=== PATIENT | female | born 1970 | race Caucasian/White ===

== ENCOUNTER 2022-06-23 08:22 | Outpatient (CLI) | payer BC, SELFPAY ==
--- NOTE | 2022-06-23 08:31 | MM_ITS ---
WS: [id number] SCREENING DIGITAL TOMOSYNTHESIS MAMMOGRAM WITH CAD HISTORY: SCREENING COMPARISON: 08/03/2019 and 06/01/2018 Bilateral CC and MLO with tomosynthesis views submitted. Synthetic mammography reviewed. Computer aid ed detection analyzed. Breast composition: There are scattered areas of fibroglandular density. No suspicious masses, microc alcifications or architectural distortion. MM/[id number] IMPRESSION: BI-RADS: 1-Negative FOLLOW UP: 1 Year Follow-up
== END 2022-06-23 08:23 | disposition home or self-care (01) ==
LOC: RAD 08:23
PROVIDERS: PCP Physician Assistant; Visit Provider Physician Assistant
DX: Z12.31 Encounter for screening mammogram for malignant neoplasm of breast (principal)
CPT/HCPCS: 77063; 77067

== ENCOUNTER 2024-02-02 14:25 | Outpatient (CLI) | payer BC, SELFPAY ==
--- NOTE | 2024-02-02 14:36 | MM_ITS ---
WS: [id number] BILATERAL SCREENING DIGITAL TOMOSYNTHESIS MAMMOGRAM WITH CAD HISTORY: SCREENING COMPARISON: 06/23/2022, 08/03/2019 Bilateral CC and MLO views with tomosynthesis and synthetic mammography submitted. Computer aided det ection analyzed. Breast composition: There are scattered areas of fibroglandular density. No suspicious masses, microc alcifications or architectural distortion. MM/[id number] IMPRESSION: BI-RADS: 1-Negative FOLLOW UP: 1 Year Follow-up
== END 2024-02-02 14:26 | disposition home or self-care (01) ==
LOC: RAD 14:26
PROVIDERS: PCP Physician Assistant; Visit Provider Physician Assistant
DX: Z12.31 Encounter for screening mammogram for malignant neoplasm of breast (principal); R92.323 Mammographic fibroglandular density, bilateral breasts
CPT/HCPCS: 77063; 77067

== ENCOUNTER 2024-10-14 06:01 | Emergency (ER) | payer BC, SELFPAY ==
[2024-10-14] VITALS (8 sets, daily range): BP systolic 92–198; BP diastolic 58–84; PULSE 60–62; RESP 20; TEMP 36.6; O2SAT 99–100; BMI 39.1
--- NOTE | 2024-10-14 07:24 | ED_ITS ---
HPI - Abdominal Pain 2 General: Chief Complaint: Abdominal Pain Stated Complaint: abd pain Time Seen by Provider: 10/14/24 07:24 History of Present Illness: Patient presents to the ER with complaints of epigastric pain that started at 1:00 this morning and is been there ever since. She says she had 1 episode about a week ago where she went to her PCP and was given a GI cocktail and resolved it and 2 or 3 days later she had another minor episode where she takes green tea and head that resolved. Patient is also had a couple episodes of emesis today. Upon further questioning patient was given Protonix and had been on it for about 3 years but recently stopped taking it. Related Data Home Medications ?Medication ?Instructions ?Recorded ?Confirmed levothyroxine 88 mcg tablet 88 mcg PO DAILY 10/14/24 0 10/14/24 (Synthroid) pantoprazole 40 mg tablet,delayed 40 mg PO DAILY 10/1410/14/24 release Previous Rx's ?Medication ?Instructions ?Recorded famotidine 40 mg tablet (Pepcid) 40 mg PO BID #30 tabs 10/14/24 pantoprazole 40 mg tablet,delayed 40 mg PO DAILY #30 t abs 10/14/24 release (Protonix) Allergies Allergy/AdvReac Type Severity Reaction Status Date / Time No Known Allergies Allergy Verified 10/14/24 06:15 Review of Systems 2 General: Reports: 10 or more systems reviewed and unremarkable except in HPI and below Physical Exam 2 Const: COMMON NORMALS: no acute distress, average body habitus, patient oriented x3, no limitations, healthy appearing, alert and well nourished HENMT: COMMON NORMALS: normocephalic, atraumatic, hearing grossly normal bilaterally, external ears normal, Normal external nose present, moist oral mucous membranes and oropharynx normal HEAD & SCALP: normocephalic and atraumatic NOSE: Normal external nose present EXTERNAL EAR: Yes external ears normal Neck/C-Spine: COMMON NORMALS: no JVD Chest: COMMONS NORMALS: normal inspection of the chest and normal palpation of entire chest wall Resp: COMMON NORMALS: normal respiratory effort, No retractions, No use of accessory muscles and clear to auscultation bilaterally AUSCULTATION: clear to auscultation bilaterally Cardio: COMMON NORMALS: no JVD, regular rate, regular rhythm, S1 normal heart sound present, S2 normal heart sound present, No gallops present (Cardio), No clicks present (Cardio), No murmurs present (Cardio) and No rub (Cardio) R ATE: regular rate RHYTHM: regular rhythm HEART SOUNDS: S1 normal heart sound present and S2 normal heart sound present GI: COMMON NORMALS: Normal to inspection, nondistended, normoactive bowel sounds present, Soft to palpation, No hepatosplenomegaly present and no masses; negative for non-tender (Tender to palpate over epigastric area) PALPATION: Y es Soft to palpation and Yes No hepatosplenomegaly present Neuro: COMMON NORMALS: patient oriented x3 SENSORIUM/ORIENTATION: Yes alert Course 2 Vital Signs: Vital signs: Vital Signs Temperature 97.8 F 10/14/24 06:10 Pulse Rate 60 10/14/24 06:10 Respiratory Rate 20 H 10/14/24 06:10 Blood Pressure 115/69 10/14/24 08:00 Pulse Oximetry 100 10/14/24 09:15 Oxygen Delivery Me thod Room Air 10/14/24 06:10 MDM - Abdominal Pain Medical Decision Making Lab work revealed which essentially unremarkable, abdomen/pelvis CT scan showed no acute findings but a right ovarian cyst cholelithiasis. Patient was given GI cocktail, Toradol, Pepcid, Reglan to be resting much more comfortably upon reevaluation. Will prescribe the patient more Protonix and Pepcid to her pharmacy and have her follow-up with her PCP. Medical Records I reviewed the patient's medical records. Lab Data I reviewed the patient's lab results. 10/14/24 07:11 10/14/24 07:11 Labs/Radiology: Radiology Impressions Abdomen/Pelvis CT 10/14/24 10:12 IMPRESSION: 1. No acute findings. 2. Cholelithiasis 3. Right ovarian cyst 4. Hiatal hernia Laboratory Results WBC 7.20 10^3/uL (3.29-11.43) 10/14/24 07:11 RBC 5.28 10^6/uL (3.85-5.65) 10/14/24 07:11 Hgb 14.60 g/dL (11.27-16.99) 10/14/24 07:11 Hct 44.7 % (36-47) 10/14/24 07:11 MCV 84.7 fl (85-98) L 10/14/24 07:11 MCH 27.7 pg (27-33) 10/14/24 07:11 MCHC 32.7 g/dL (30-55) 10/14/24 07:11 RDW 14.7 % (12.1-15.1) 10/14/24 07:11 Plt Count 348 10^3/cmm (157-399) 10/14/24 07:11 MPV 10.9 fL (7.4-10.4) H 10/14/24 07:11 Neut % (Auto) 65.2 % 10/14/24 07:11 Lymph % (Auto) 27.5 % 10/14/24 07:11 [place] % (Auto) 5.7 % 10/14/24 07:11 Eos % (Auto) 0.6 % 10/14/24 07:11 Baso % (Auto) 0.7 % 10/14/24 07:11 Neut # (Auto) 4.70 10^3/uL (1.8-7.7) 10/14/24 07:11 Lymph # (Auto) 2.0 10^3/uL (0.8-4.8) 10/14/24 07:11 [place] # (Auto) 0.4 10^3/uL (0.2-0.9) 10/14/24 07:11 Eos # (Auto) 0.0 10^3/uL (0.0-0.8) 10/14/24 07:11 Baso # (Auto) 0.1 10^3/uL (0.0-0.1) 10/14/24 07:11 Nucleated RBC % (auto) 0 % 10/14/24 07:11 Nucleated RBCs # 0.0 /100WBC 10/14/24 07:11 Sodium 139 mmol/L (136-145) 10/14/24 07:11 Potassium 4.2 mmol/L (3.5-5.1) 10/14/24 07:11 Chloride 104 mmol/L (98-107) 10/14/24 07:11 Carbon Dioxide 23 mmol/L (22-29) 10/14/24 07:11 Anion Gap 16.2 (5-19) 10/14/24 07:11 BUN 12 mg/dL (6-20) 10/14/24 07:11 Creatinine 0.6 mg/dL (0.5-0.9) 10/14/24 07:11 GFR Calculation 103.8 mL/min (90-130) 10/14/24 07:11 Glucose 114 mg/dL (65-115) 10/14/24 07:11 Calculated Osmolality 289 mOsm/kg (285-295) 10/14/24 07:11 Calcium 9.6 mg/dL (8.5-10.5) 10/14/24 07:11 Magnesium 2.0 mg/dL (1.7-2.3) 10/14/24 07:11 Total Bilirubin 0.3 mg/dL (0.15-1.2) 10/14/24 07:11 AST 18 U/L (0-32) 10/14/24 07:11 ALT 16 U/L (0-33) 10/14/24 07:11 Alkaline Phosphatase 81 U/L (35-105) 10/14/24 07:11 Total Protein 7.2 g/dL (6.6-8.7) 10/14/24 07:11 Albumin 4.4 g/dL (3.5-5.2) 10/14/24 07:11 Globulin 2.8 g/dL (1.3-4.6) 10/14/24 07:11 Lipase 21 U/L (13-60) 10/14/24 07:11 Urine Color Yellow (Yellow) 10/14/24 09:20 Urine Appearance Clear (CLEAR) 10/14/24 09:20 Urine pH 9 (5-7) A 10/14/24 09:20 Ur Specific Perry 1.015 (1.005-1.030) 10/14/24 09:20 Urine Protein Neg (Negative) 10/14/24 09:20 Urine Glucose (UA) Norm (Normal) 10/14/24 09:20 Urine Ketones 1+ (Negative) H 10/14/24 09:20 Urine Blood Neg (Negative) 10/14/24 09:20 Urine Nitrate Negative (Negative) 10/14/24 09:20 Urine Bilirubin Neg (Negative) 10/14/24 09:20 Urine Urobilinogen Neg mg/dL (Negative) 10/14/24 09:20 Ur Leukocyte Esterase Negative (Negative) 10/14/24 09:20 Urine RBC 0-2 /hpf (0-2) 10/14/24 09:20 Urine WBC 0-5 /hpf (0-5) 10/14/24 09:20 Ur Squamous Epith Cells 0-5 /hpf (0-5) 10/14/24 09:20 Amorphous Sediment Not Reportable 10/14/24 09:20 Urine Bacteria None seen /hpf (NONE) 10/14/24 09:20 Hyaline Casts 1.21 /lpf 10/14/24 09:20 All radiology interpretation(s) finalized by discharge Discharge Plan Discharge Patient Disposition: Home Clinical Impression: Nausea & vomiting, Acute epigastric pain, Cyst of right ovary, Gallstone Condition: Stable Prescriptions: New famotidine [Pepcid] 40 mg tablet 40 mg PO BID Qty: 30 0RF pantoprazole [Protonix] 40 mg tablet,delayed release (DR/EC) 40 mg PO DAILY Qty: 30 0RF No Action levothyroxine [Synthroid] 88 mcg tablet 88 mcg PO DAILY pantoprazole 40 mg tablet,delayed release (DR/EC) 40 mg PO DAILY Discharge Orders: Discharge ED (Routine); Ordered 10/14/24 Ordered By: Davide Husain Referrals: Jo-Ann Mccallum PA [Primary Care Provider] - 1 week Patient Instructions: Abdominal Pain (ED), Ovarian Cyst (ED), Gallstones (ED) Activity Restrictions/Additional Instructions: 2 prescriptions have been sent to your pharmacy. Please fill these prescriptions and take them as directed. Please follow-up with your family practice physician in the next 7 days for further evaluation treatment as needed. Print Language: [place] Coding Level of Care Code ED [employer] for Tammy Zayas
[2024-10-14] MEDS: lidocaine 2% viscous 15 ML, aluminum-mag hydrox-simethicon 30 ML, sucralfate oral liq 1 GM PO ×2 (07:42→08:38)
[2024-10-14] MEDS: ondansetron hcl ODT 4 mg Tab PO (07:42)
[2024-10-14 07:46] LABS: Basophils # 0.1 10^3/uL (0.0-0.1); Basophils % 0.7 %; Eosinophils % 0.6 %; Hematocrit 44.7 % (36-47); Lymphocytes % 27.5 %; Mean Corpuscular HGB Conc 32.7 g/dL (30-55); Mean Corpuscular Hemoglobin 27.7 pg (27-33); Mean Corpuscular Volume 84.7 fl (85-98); Mean Platelet Volume 10.9 fL (7.4-10.4); Monocytes # 0.4 10^3/uL (0.2-0.9); Monocytes % 5.7 %; Neutrophils % 65.2 %; Nucleated Red Blood Cells % 0 %; Platelet Count 348 10^3/cmm (157-399); Red Blood Count 5.28 10^6/uL (3.85-5.65); Red Cell Distribution Width 14.7 % (12.1-15.1)
[2024-10-14] MEDS: ondansetron 2 mg/ML SDV 2 mL 8 MG IVP (07:51)
[2024-10-14 07:56] LABS: Alanine Aminotransferase 16 U/L (0-33); Albumin Level 4.4 g/dL (3.5-5.2); Alkaline Phosphatase 81 U/L (35-105); Anion Gap 16.2 (5-19); Aspartate Amino Transferase 18 U/L (0-32); Blood Urea Nitrogen 12 mg/dL (6-20); Calcium 9.6 mg/dL (8.5-10.5); Carbon Dioxide 23 mmol/L (22-29); Chloride 104 mmol/L (98-107); Globulin 2.8 g/dL (1.3-4.6); Glomerular Filtration Rate 103.8 mL/min (90-130); Glucose 114 mg/dL (65-115); Lipase 21 U/L (13-60); Osmolality Calculated 289 mOsm/kg (285-295); Potassium 4.2 mmol/L (3.5-5.1); Sodium 139 mmol/L (136-145); Total Bilirubin 0.3 mg/dL (0.15-1.2); Total Protein 7.2 g/dL (6.6-8.7)
[2024-10-14] MEDS: famotidine 20 mg/2 mL INJ 40 MG IVP (09:18)
[2024-10-14] MEDS: metoclopramide 5 mg/mL SDV 2 mL 10 MG IVP (09:18)
[2024-10-14 09:51] LABS: Bacteria Urine None Seen /hpf; Hyaline Casts Urine 1.21 /lpf; RBC Urine 0-2 /hpf (0-2); Squamous Epithelial Cell Urine 0-5 /hpf (0-5); WBC Urine 0-5 /hpf (0-5)
[2024-10-14 09:52] LABS: Add Urine Microscopic? YES; Bilirubin Urine Neg (Negative); Blood Urine Neg (Negative); Glucose Urine UA Norm (Normal); Ketones Urine 1+ (Negative); Nitrate Urine Negative (Negative); Protein Urine Neg (Negative); Specific Gravity, Urine 1.015 (1.005-1.030); Urine Appearance Clear (CLEAR); Urine Color Yellow (Yellow); Urobilinogen Urine Neg (Negative); pH Urine 9 (5-7)
[2024-10-14 09:53] LABS: Leukocyte Esterase Urine Negative (Negative)
--- NOTE | 2024-10-14 10:12 | CTR_ITS ---
PROCEDURE INFORMATION: Exam: CT Abdomen And Pelvis With Contrast Exam date and time: 10/14/2024 10:19 AM Age: 54 years old Clinical indication: Abdominal pain; Epigastric; Additional info: Epigastric pain, resistant nausea vomiting TECHNIQUE: Imaging protocol: Computed tomography of the abdomen and pelvis with contrast. Radiation optimization: All CT scans at this facility use at least one of these dose optimization techniques: automated exposure control; mA and/or kV adjustment per patient size (includes targeted exams where dose is matched to clinical indication); or iterative reconstruction. Contrast material: OMNI 350; Contrast volume: 100 ml; Contrast route: INTRAVENOUS (IV); COMPARISON: No relevant prior studies available. RADIATION DOSE METRICS: Total DLP (mGy-cm): 1109.23 FINDINGS: Lungs: Lung bases are clear. No pleural effusion. Diaphragm: A hiatal hernia is noted in the lower mediastinum. Liver: Normal. No mass. Gallbladder and biliary ducts: Multiple gallstones are noted in the gallbladder but the gallbladder does not appear inflamed and demonstrates normal wall thickness. Pancreas: Normal. No ductal dilation. Spleen: Normal. No splenomegaly. Adrenal glands: Normal. No mass. Kidneys and ureters: Normal. No hydronephrosis. Stomach and bowel: Unremarkable. No obstruction. No mucosal thickening. Appendix: No evidence of appendicitis. Intraperitoneal space: Unremarkable. No free air. No significant fluid collection. Vasculature: Unremarkable. No abdominal aortic aneurysm. Lymph nodes: Unremarkable. No enlarged lymph nodes. Urinary bladder: Unremarkable as visualized. Reproductive: A 3.5 cm simple cyst involves the right ovary. Bones/joints: Unremarkable. No acute fracture. Soft tissues: Unremarkable. CT/CT abdomen pelvis w con* [id number] IMPRESSION: 1. No acute findings. 2. Cholelithiasis 3. Right ovarian cyst 4. Hiatal hernia
[2024-10-14] MEDS: ketorolac 30 mg/mL INJ IVP (10:24)
[2024-10-14] MEDS: iohexol 350 mg/mL 500 mL Btl (per mL) IV (10:26)
== END 2024-10-14 11:35 | disposition home or self-care (01) ==
PROVIDERS: Emergency Provider Emergency Medicine; PCP Physician Assistant
DX: R11.2 Nausea with vomiting, unspecified (principal); R10.13 Epigastric pain; N83.201 Unspecified ovarian cyst, right side; K80.20 Calculus of gallbladder without cholecystitis without obstruction
CPT/HCPCS: 36415; 74177; 80053; 81001; 83690; 83735; 85025; 96374; 96375; 99285; J1885; J2405; J2765; J3490; J9999; Q0162